=== PATIENT | male | born 1945 | race Caucasian/White ===

== ENCOUNTER 2019-07-11 12:57 | Inpatient (IN) | payer MEDICARE, BC ==
[~2019-07-11] VITALS: Ht 190.5 cm; Wt 68.0 kg
[2019-07-11] MEDS ORDERED: CefTRIAXone 2gm/D5W 50ml 50 ML IV ONE (13:05)
[2019-07-11] MEDS ORDERED: ipratropium/albuterol 3ml nebule NEB ONE (13:05)
[2019-07-11] MEDS ORDERED: azithromycin/NS 500mg/250ml 250 ML IV ONE (13:05)
[2019-07-11] MEDS ORDERED: normal saline 1000ml 1,000 ML IV ONE (13:05)
--- NOTE | 2019-07-11 13:37 | NUR ---
MEDICAL RECORD RELEASE FAXED TO [facility]
[2019-07-11 13:54] LABS: BASOPHILS # (AUTO) 0.1 X10'3 (0-0.2); BASOPHILS % (AUTO) 0.6 % (0-1); EOSINOPHILS % (AUTO) 0.3 % (0-6); HEMATOCRIT 43.1 % (42.0-52.0); HEMOGLOBIN 14.6 g/dl (14.0-17.9); LYMPHOCYTES # (AUTO) 0.5 X10'3 (1.1-4.8); LYMPHOCYTES % (AUTO) 5.1 % (21-51); MEAN CORPUSCULAR HEMOGLOBIN 34.5 PG (27.0-31.0); MEAN CORPUSCULAR HGB CONC 33.8 g/dL (33.0-36.5); MEAN PLATELET VOLUME 7.6 FL (7.4-10.4); MONOCYTES # (AUTO) 0.5 X10'3 (0-0.9); MONOCYTES % (AUTO) 5.7 % (2-12); NEUTROPHILS % (AUTO) 88.3 % (42-75); PLATELET COUNT 201 X10'3 (140-440); RED BLOOD COUNT 4.23 X10'6 (4.70-6.10); RED CELL DISTRIBUTION WIDTH 14.6 % (11.5-14.5); WHITE BLOOD COUNT 9.1 X10'3 (4.5-11.0)
[2019-07-11 14:05] LABS: PARTIAL THROMBOPLASTIN TIME 28 SECONDS (22-32)
[2019-07-11 14:07] LABS: ALANINE AMINOTRANSFERASE 10 U/L (12-78); ALBUMIN 3.5 G/DL (3.4-5.0); ALBUMIN/GLOBULIN RATIO 1.1 (1.1-1.5); ALKALINE PHOSPHATASE 59 IU/L (46-116); ANION GAP 5 (8-16); ASPARTATE AMINO TRANSFERASE 11 U/L (10-37); BILIRUBIN,TOTAL 0.7 MG/DL (0.1-1.0); BLOOD UREA NITROGEN 18 MG/DL (7-18); BUN/CREATININE RATIO 12.8 (5.4-32.0); CHLORIDE 106 MMOL/L (99-107); CREATININE 1.41 MG/DL (0.60-1.10); GLUCOSE 120 MG/DL (70-104); MAGNESIUM 1.7 MG/DL (1.5-2.4); POTASSIUM 4.8 MMOL/L (3.5-5.1); SODIUM 140 MMOL/L (135-145); TOTAL CARBON DIOXIDE 28.8 MMOL/L (24-32); TOTAL PROTEIN 6.8 G/DL (6.4-8.2); eGFR 49 ML/MIN
[2019-07-11] MEDS ORDERED: ALBU8HFA PO (14:14)
[2019-07-11] MEDS ORDERED: PER10325T PO (14:14)
[2019-07-11] MEDS ORDERED: CHOL200012 PO (14:14)
[2019-07-11] MEDS ORDERED: SIMV20TA5 PO (14:14)
[2019-07-11] MEDS ORDERED: FURO-150 PO (14:14)
[2019-07-11] MEDS ORDERED: ATEN-169 PO (14:14)
[2019-07-11] MEDS ORDERED: NITR0.4T51 SL (14:14)
[2019-07-11] MEDS ORDERED: ACET-2119 PO (14:14)
[2019-07-11] MEDS ORDERED: NALO4SPR NAS (14:14)
[2019-07-11] MEDS ORDERED: SENN-162 PO (14:14)
[2019-07-11] MEDS ORDERED: METH750T3 PO (14:14)
[2019-07-11] MEDS ORDERED: CLOP75TA35 PO (14:14)
[2019-07-11] MEDS ORDERED: PROM25TA14 PO (14:14)
[2019-07-11] MEDS ORDERED: ASPI-1264 PO (14:14)
[2019-07-11] MEDS ORDERED: BUPR100T16 PO (14:14)
[2019-07-11] MEDS ORDERED: MORP30TA PO (14:14)
[2019-07-11] MEDS ORDERED: GABA-532 PO (14:14)
[2019-07-11] MEDS ORDERED: ATRIN IH (14:14)
[2019-07-11] MEDS ORDERED: FOLI0.4T2 PO (14:14)
[2019-07-11] MEDS ORDERED: iohexol 350MG/ML 100ml bottle IV ONE (14:25)
[2019-07-11] MEDS ORDERED: normal saline 1000ML IV soln IVB ONE (14:35)
[2019-07-11] MEDS ORDERED: naloxone 0.4 mg/ml inj IV PRN (16:45)
[2019-07-11] MEDS ORDERED: nitroGLYCERIN 0.4mg SUBLingual tab SL PRN (16:45)
--- NOTE | 2019-07-11 16:49 | NUR ---
CONTACT YUE @ [phone] WITH [facility] PRIOR TO DISCHARGE TO UPDATE THEM RE: PT.
[2019-07-11 16:50] LABS: ABG HCO3 22.7 mmol/L (22.0-26.0); ABG OXYGEN SATURATION 93.8 % (95-98); ABG PCO2 (T) 34.7 mmHg (35.0-45.0); ABG PH (T) 7.434 (7.350-7.450); ABG PO2 (T) 65.7 mmHg (83-108); ALLEN'S TEST Positive; FCOHb 0.9 % (0.5-1.5); FMetHb 0.3 % (0.3-1.12); FO2Hb 92.7 % (94-100); TOTAL HEMOGLOBIN 13.3 G/dl (14.0-17.9)
[2019-07-11] MEDS ORDERED: potassium Cl 20 mEq SR tablet PO PRN ×2 (16:50)
[2019-07-11] MEDS ORDERED: morphine 2 MG/ML inj. syringe IV PRN (16:50)
[2019-07-11] MEDS: K and/or MAG REPLACEMENT MC SCH (16:50)
[2019-07-11] MEDS ORDERED: magnesium hydroxide 30ml (MOM) UD suspension PO PRN (16:50)
[2019-07-11] MEDS ORDERED: methylPREDNISolone sod succ 125mg/2ml vial IV ONE (16:50)
[2019-07-11] MEDS ORDERED: HYDROcodone/acetaminophen 5mg/325mg tablet PO PRN (16:50)
[2019-07-11] MEDS ORDERED: acetaminophen 325mg tablet PO PRN ×2 (16:50)
[2019-07-11] MEDS ORDERED: diphenhydrAMINE 25mg capsule PO PRN (16:50)
[2019-07-11] MEDS ORDERED: magnesium 2GM in 50ml NS 50 ML IV PRN (16:50)
[2019-07-11] MEDS ORDERED: mag hydrox/Alum hydrox/simeth 30ml oral suspension PO PRN (16:50)
[2019-07-11] MEDS ORDERED: potassium CL 10mEq/100ml bag 100 ML IV PRN ×2 (16:50)
[2019-07-11] MEDS ORDERED: diphenhydrAMINE 50 mg/ml inj IV PRN (16:50)
[2019-07-11] MEDS ORDERED: magnesium 4gm in 100ml NS 100 ML IV PRN (16:50)
[2019-07-11] MEDS ORDERED: HYDROcodone/acetaminophen 10/325mg tab PO PRN (16:50)
[2019-07-11] MEDS ORDERED: bisacodyl 10mg suppository rectal RC PRN (16:50)
[2019-07-11] MEDS ORDERED: ondansetron/PF 4mg/2ml inj IV PRN (16:50)
[2019-07-11] MEDS ORDERED: magnesium Cl slow-release 64mg tablet PO PRN (16:50)
[2019-07-11] MEDS: normal saline 1000ml 1,000 ML IV SCH ×2 (17:46→21:25)
[2019-07-11] MEDS ORDERED: MSC30T PO (18:08)
[2019-07-11] MEDS ORDERED: NALO25TA PO (18:10)
[2019-07-11] MEDS ORDERED: LISI10TA4 PO (18:10)
[2019-07-11] MEDS ORDERED: OMEP40CA13 PO (18:10)
[2019-07-11 18:20] LABS: CLARITY,URINE CLEAR (Clear); COLOR,URINE YELLOW (Yellow); GLUCOSE, URINE NEGATIVE (Neg); KETONES,URINE NEGATIVE (Neg); LEUKOCYTE ESTERASE ,URINE NEGATIVE (Neg); NITRITES, URINE NEGATIVE (Neg); OCCULT BLOOD,URINE NEGATIVE (Neg); PH,URINE 5.5 (4.8-8.0); PROTEIN,URINE NEGATIVE (Neg); UROBILINOGEN,URINE 0.2 E.U/dL (0.2-1.0)
[2019-07-11 18:22] LABS: UA COLLECTION TYPE CLN CATCH MIDSTREAM
[2019-07-11] MEDS: ipratropium/albuterol 3ml nebule NEB SCH ×2 (19:03→23:00)
[2019-07-11 19:46] VITALS: BP 127/68
[2019-07-11] MEDS ORDERED: morphine IR (immed. release) 30mg tablet PO SCH (20:00)
[2019-07-11] MEDS ORDERED: cyclobenzaprine 10mg tablet PO PRN (21:00)
[2019-07-11] MEDS ORDERED: temazepam 15mg capsule PO PRN (21:00)
[2019-07-11] MEDS: heparin, porcine 5000 units/ml vial SQ SCH (21:22)
[2019-07-11] MEDS: sennosides 8.6mg tablet PO SCH (21:23)
[2019-07-11] MEDS: gabapentin 300mg capsule PO SCH (21:23)
[2019-07-11] MEDS: atorvastatin 20mg tablet PO SCH (21:24)
[2019-07-11] MEDS: oxyCODONE/APAP 10/325mg tablet PO SCH (21:25)
[2019-07-11 22:00] VITALS: BP 128/69
[2019-07-11] MEDS: buPROPion 100mg tablet PO SCH (23:26)
--- NOTE | 2019-07-11 23:35 | NUR ---
Patient refused Wellbutrin / BuPROPion 100mg after I scanned med. Dr. Mir was informed.
[2019-07-11] MEDS: methylPREDNISolone sod succ 125mg/2ml vial IV SCH (23:56)
[2019-07-12 02:00] VITALS: BP 116/67
[2019-07-12] MEDS: ipratropium/albuterol 3ml nebule NEB SCH ×6 (02:54→23:00)
[2019-07-12 05:34] LABS: ALANINE AMINOTRANSFERASE 7 U/L (12-78); ALBUMIN 2.9 G/DL (3.4-5.0); ALBUMIN/GLOBULIN RATIO 0.9 (1.1-1.5); ALKALINE PHOSPHATASE 50 IU/L (46-116); ANION GAP 9 (8-16); ASPARTATE AMINO TRANSFERASE 5 U/L (10-37); BILIRUBIN,TOTAL 0.4 MG/DL (0.1-1.0); BLOOD UREA NITROGEN 18 MG/DL (7-18); BUN/CREATININE RATIO 15.1 (5.4-32.0); CALCIUM 8.7 MG/DL (8.5-10.1); CHLORIDE 107 MMOL/L (99-107); CHOL/HDL RATIO 2.1 (0.00-4.99); CHOLESTEROL 147 MG/DL (0-200); CREATININE 1.19 MG/DL (0.60-1.10); GLUCOSE 163 MG/DL (70-104); HDL CHOLESTEROL 69 MG/DL (35-60); LDL CHOLESTEROL 67 MG/DL (50-100); MAGNESIUM 1.8 MG/DL (1.5-2.4); PHOSPHORUS 2.4 MG/DL (2.3-4.5); POTASSIUM 4.5 MMOL/L (3.5-5.1); SODIUM 141 MMOL/L (135-145); TOTAL CARBON DIOXIDE 25.3 MMOL/L (24-32); TOTAL PROTEIN 6.1 G/DL (6.4-8.2); TRIGLYCERIDES 36 MG/DL (20-135); eGFR 59 ML/MIN
[2019-07-12 06:00] VITALS: BP 120/64
[2019-07-12 06:05] LABS: BASOPHILS % (AUTO) 0 % (0-1); EOSINOPHILS % (AUTO) 0 % (0-6); HEMATOCRIT 39.8 % (42.0-52.0); HEMOGLOBIN 13.3 g/dl (14.0-17.9); LYMPHOCYTES # (AUTO) 0.5 X10'3 (1.1-4.8); LYMPHOCYTES % (AUTO) 6.1 % (21-51); MEAN CORPUSCULAR HEMOGLOBIN 34.2 PG (27.0-31.0); MEAN CORPUSCULAR HGB CONC 33.5 g/dL (33.0-36.5); MEAN CORPUSCULAR VOLUME 102.2 FL (78-98); MEAN PLATELET VOLUME 7.8 FL (7.4-10.4); MONOCYTES # (AUTO) 0.1 X10'3 (0-0.9); MONOCYTES % (AUTO) 0.9 % (2-12); NEUTROPHILS # (AUTO) 6.9 X10'3 (1.8-7.7); PLATELET COUNT 176 X10'3 (140-440); RED CELL DISTRIBUTION WIDTH 14.7 % (11.5-14.5); WHITE BLOOD COUNT 7.4 X10'3 (4.5-11.0)
--- NOTE | 2019-07-12 06:35 | NUR ---
Problems reprioritized. Patient report given, questions answered & plan of care reviewed with MOUNA Scott. Pt in stable condition at shift change..
[2019-07-12] MEDS: normal saline 1000ml 1,000 ML IV SCH ×2 (07:00→20:30)
[2019-07-12] MEDS: K and/or MAG REPLACEMENT MC SCH (08:00)
[2019-07-12] MEDS: oxyCODONE/APAP 10/325mg tablet PO SCH ×3 (08:00→20:33)
[2019-07-12] MEDS: buPROPion 100mg tablet PO SCH ×2 (08:24→20:00)
[2019-07-12] MEDS: azithromycin 250mg tablet PO SCH (08:24)
[2019-07-12] MEDS: pantoprazole 40mg Tablet.DR PO SCH (08:25)
[2019-07-12] MEDS: lisinopril 10 MG tablet PO SCH (08:25)
[2019-07-12] MEDS: folic acid 0.4mg tablet PO SCH (08:26)
[2019-07-12] MEDS: vitamin D (cholecalciferol) 1,000 unit tablet PO SCH (08:27)
[2019-07-12] MEDS: clopidogrel 75mg tablet PO SCH (08:27)
[2019-07-12] MEDS: furosemide 20MG tablet PO SCH (08:27)
[2019-07-12] MEDS: aspirin 325mg tablet PO SCH (08:27)
[2019-07-12] MEDS: methylPREDNISolone sod succ 125mg/2ml vial IV SCH ×3 (08:28→23:46)
[2019-07-12] MEDS: heparin, porcine 5000 units/ml vial SQ SCH ×2 (08:28→20:32)
[2019-07-12] MEDS: gabapentin 300mg capsule PO SCH ×3 (08:28→20:32)
[2019-07-12] MEDS: atenolol 25mg tablet PO SCH (08:31)
[2019-07-12] MEDS: morphine 2 MG/ML inj. syringe IV PRN ×2 (08:39→23:54)
[2019-07-12] MEDS: morphine ER 30mg tablet PO SCH ×2 (08:39→20:31)
[2019-07-12] MEDS: CefTRIAXone/D5W-Rocephin 1gm 50 ML IV SCH (08:40)
[2019-07-12 11:00] VITALS: BP 146/73
--- NOTE | 2019-07-12 14:38 | NUR ---
Patient only ate a few bites of rice and meat. Addendum: 07/12/19 at 1438 by Viktoria Donato RN Amended: Links added.
--- NOTE | 2019-07-12 14:55 | NUR ---
Malnutrition consult: Patient seen at bedside reports low appetite secondary to pain which is evident with documented 50% PO intake at breakfast and 0% PO intake at lunch on heart healthy diet. Pt reports poor PO intake for lunch r/t CP following RT treatment. Pt reports he weighed 215-220 lbs seven years ago prior to pain, current documented wt is patient stated at 180 lbs which pt reports was taken recently at a different facility. This is non-significant wt loss of 16-18% in seven years. Pt with mild weakness and no edema. No visible fat or muscle wasting. Pt currently does not meet criteria for malnutrition. Pt denies any food preferences at this time and was provided with written heart healthy alternative food menu to provide additional food options and RD contact information. Will continue to follow. Addendum: 07/12/19 at [address] Amended: Links added.
[2019-07-12 15:00] VITALS: BP 110/61
[2019-07-12 18:00] VITALS: BP 104/58
--- NOTE | 2019-07-12 18:05 | NUR ---
Problems reprioritized. Patient report given, questions answered & plan of care reviewed with MOUNA Moeller.
--- NOTE | 2019-07-12 18:05 | NUR ---
Patient in room PCU 3024Y. I have received report from MOUNA Blum and had the opportunity to ask questions and assume patient care. Pt is A&O X4, denies CP, nausea, or dizziness.
[2019-07-12] MEDS: sennosides 8.6mg tablet PO SCH (20:32)
[2019-07-12] MEDS: atorvastatin 20mg tablet PO SCH (20:32)
[2019-07-12 22:00] VITALS: BP 115/62
[2019-07-13 02:00] VITALS: BP 126/69
[2019-07-13] MEDS: ipratropium/albuterol 3ml nebule NEB SCH ×4 (03:14→15:30)
[2019-07-13 06:00] VITALS: BP 162/83
[2019-07-13 06:31] LABS: BASOPHILS # (AUTO) 0.1 X10'3 (0-0.2); BASOPHILS % (AUTO) 0.4 % (0-1); EOSINOPHILS % (AUTO) 0 % (0-6); HEMATOCRIT 43.3 % (42.0-52.0); HEMOGLOBIN 14.3 g/dl (14.0-17.9); LYMPHOCYTES # (AUTO) 0.8 X10'3 (1.1-4.8); LYMPHOCYTES % (AUTO) 5.6 % (21-51); MEAN CORPUSCULAR HEMOGLOBIN 33.5 PG (27.0-31.0); MEAN CORPUSCULAR HGB CONC 33.1 g/dL (33.0-36.5); MEAN CORPUSCULAR VOLUME 101.3 FL (78-98); MEAN PLATELET VOLUME 7.8 FL (7.4-10.4); MONOCYTES # (AUTO) 0.4 X10'3 (0-0.9); MONOCYTES % (AUTO) 2.6 % (2-12); NEUTROPHILS # (AUTO) 13.2 X10'3 (1.8-7.7); NEUTROPHILS % (AUTO) 91.4 % (42-75); PLATELET COUNT 201 X10'3 (140-440); RED BLOOD COUNT 4.27 X10'6 (4.70-6.10); RED CELL DISTRIBUTION WIDTH 14.5 % (11.5-14.5); WHITE BLOOD COUNT 14.4 X10'3 (4.5-11.0)
[2019-07-13 06:51] LABS: ALBUMIN 3.1 G/DL (3.4-5.0); ALBUMIN/GLOBULIN RATIO 0.9 (1.1-1.5); ALKALINE PHOSPHATASE 57 IU/L (46-116); ANION GAP 10 (8-16); ASPARTATE AMINO TRANSFERASE 8 U/L (10-37); BILIRUBIN,TOTAL 0.3 MG/DL (0.1-1.0); BLOOD UREA NITROGEN 21 MG/DL (7-18); BUN/CREATININE RATIO 15.6 (5.4-32.0); CHLORIDE 105 MMOL/L (99-107); CREATININE 1.35 MG/DL (0.60-1.10); GLUCOSE 130 MG/DL (70-104); MAGNESIUM 1.9 MG/DL (1.5-2.4); PHOSPHORUS 3.8 MG/DL (2.3-4.5); POTASSIUM 4.4 MMOL/L (3.5-5.1); SODIUM 141 MMOL/L (135-145); TOTAL CARBON DIOXIDE 25.8 MMOL/L (24-32); TOTAL PROTEIN 6.7 G/DL (6.4-8.2); eGFR 51 ML/MIN
--- NOTE | 2019-07-13 06:52 | NUR ---
Patient in room PCU 3024. I have received report from Rakesh FREIRE, and had the opportunity to ask questions and assume patient care.
[2019-07-13 07:00] VITALS: BP 106/76
--- NOTE | 2019-07-13 07:01 | NUR ---
Took patient's blood pressure at 07:00. Pt 's BP is 106/76 Addendum: 07/13/19 at 0702 by Rakesh Washburn RN Amended: Links added.
--- NOTE | 2019-07-13 07:01 | NUR ---
Problems reprioritized. Patient report given, questions answered & plan of care reviewed with Elisa RN . Pt is awake, A&O X4, denies nausea. Pt pulled IV by accident and he will need a new IV.
[2019-07-13 07:06] LABS: ALANINE AMINOTRANSFERASE 10 U/L (12-78)
[2019-07-13] MEDS: K and/or MAG REPLACEMENT MC SCH (08:00)
[2019-07-13] MEDS: oxyCODONE/APAP 10/325mg tablet PO SCH ×2 (09:10→17:01)
[2019-07-13] MEDS: azithromycin 250mg tablet PO SCH (09:12)
[2019-07-13] MEDS: aspirin 325mg tablet PO SCH (09:12)
[2019-07-13] MEDS: atenolol 25mg tablet PO SCH (09:12)
[2019-07-13] MEDS: buPROPion 100mg tablet PO SCH (09:12)
[2019-07-13] MEDS: vitamin D (cholecalciferol) 1,000 unit tablet PO SCH (09:12)
[2019-07-13 09:13] VITALS: BP_SYST 162
[2019-07-13] MEDS: furosemide 20MG tablet PO SCH (09:13)
[2019-07-13] MEDS: methylPREDNISolone sod succ 125mg/2ml vial IV SCH ×2 (09:13→17:02)
[2019-07-13] MEDS: clopidogrel 75mg tablet PO SCH (09:13)
[2019-07-13] MEDS: lisinopril 10 MG tablet PO SCH (09:13)
[2019-07-13] MEDS: gabapentin 300mg capsule PO SCH ×2 (09:14→17:01)
[2019-07-13] MEDS: morphine ER 30mg tablet PO SCH (09:14)
[2019-07-13] MEDS: CefTRIAXone/D5W-Rocephin 1gm 50 ML IV SCH (09:15)
[2019-07-13] MEDS: heparin, porcine 5000 units/ml vial SQ SCH (09:39)
[2019-07-13] MEDS: folic acid 0.4mg tablet PO SCH (09:40)
[2019-07-13] MEDS: pantoprazole 40mg Tablet.DR PO SCH (09:40)
--- NOTE | 2019-07-13 10:26 | NUR ---
HOME MED: Movantik ( Naloxegol Oxalate 25mg ) is unavailable. Pt. says no BM since 5 days prior to admission. He admits to having an every other day BM schedule. notified with request for substitute for Movantik.
--- NOTE | 2019-07-13 10:42 | NUR ---
Constipation needs: Page to Ronal[facility] ESPINOZA PAGER ID: [phone] MESSAGE: Kilo Goodman [id number] No Movantik Home Medication available Chronic Opiate user, Last BM 07-06-19 Please consider ordering a substitute/on formulary medication. Like Relistor. Thank You Elisa FREIRE [phone] The reasoning for no access to the home medication is Pt. lives alone.
--- NOTE | 2019-07-13 12:00 | NUR ---
Ambulates with cane: gait has sway otherwise steady using Assistive device (cane). No SOB noted. No Chest Pain with exertion.
[2019-07-13] MEDS ORDERED: PRED20TA PO (13:52)
[2019-07-13] MEDS ORDERED: CEFU500T66 PO (13:52)
[2019-07-13] MEDS: normal saline 1000ml 1,000 ML IV SCH (17:02)
--- NOTE | 2019-07-13 18:00 | NUR ---
Discharged Home Family friend will drive him home and stop by [facility] to picker feeder new medications. Dosing of new medication is explained to both friend and Pt. Written instructions are provided and Prednisone scott is reinforced. Daughter is aware of discharge and has spoken to nursing regarding discharge home today. Ambulate steadily with assistive device cane. Wheel chair to front entrance. Instructions are well understood at this time. Pt. will contact his home health team, and daughter will schedule a follow up appointment for a recheck within the next two weeks. All belongings are presently with the Pt. and he has his wallet. His johnson and cell phone were retained by the family friend on admission and He said that he has these things at home. Documentation is provided for his provider.
== END 2019-07-13 18:05 | disposition home or self-care (01) | DRG 193 ==
LOC: ER 13:00 → PCU 3S 19:31
PROVIDERS: ADMIT Family Medicine; ATTEND Family Medicine
PROC: B32T1ZZ Computerized Tomography (CT Scan) of Left Pulmonary Artery using Low Osmolar Contrast (ICD-10-PCS; principal; 2019-07-11)
PROC: B3201ZZ Computerized Tomography (CT Scan) of Thoracic Aorta using Low Osmolar Contrast (ICD-10-PCS; 2019-07-11)
PROC: B32S1ZZ Computerized Tomography (CT Scan) of Right Pulmonary Artery using Low Osmolar Contrast (ICD-10-PCS; 2019-07-11)
DX: J18.1 Lobar pneumonia, unspecified organism (principal); G93.41 Metabolic encephalopathy; J96.91 Respiratory failure, unspecified with hypoxia; K21.9 Gastro-esophageal reflux disease without esophagitis; J43.9 Emphysema, unspecified; E78.00 Pure hypercholesterolemia, unspecified; E78.5 Hyperlipidemia, unspecified; D72.823 Leukemoid reaction; E86.0 Dehydration; F03.90 Unspecified dementia, unspecified severity, without behavioral disturbance, psychotic disturbance, mood disturbance, and anxiety; F10.21 Alcohol dependence, in remission; T38.0X5A Adverse effect of glucocorticoids and synthetic analogues, initial encounter; F32.9 Major depressive disorder, single episode, unspecified; G62.9 Polyneuropathy, unspecified; G89.4 Chronic pain syndrome; I10 Essential (primary) hypertension; I25.10 Atherosclerotic heart disease of native coronary artery without angina pectoris; I73.9 Peripheral vascular disease, unspecified; K59.00 Constipation, unspecified; Z79.899 Other long term (current) drug therapy; Z79.02 Long term (current) use of antithrombotics/antiplatelets; Z79.82 Long term (current) use of aspirin; Z80.1 Family history of malignant neoplasm of trachea, bronchus and lung; Z87.891 Personal history of nicotine dependence; Z83.79 Family history of other diseases of the digestive system; Z81.1 Family history of alcohol abuse and dependence; Y92.89 Other specified places as the place of occurrence of the external cause
CPT/HCPCS: 36415; 36600; 71045; 71275; 80053; 80061; 81003; 82803; 83036; 83605; 83735; 84100; 84484; 85018; 85025; 85610; 85730; 87040; 93005; 93306; 94640; 94760; 96365; 96368; 96375; 97161; 97530; 99285; G0378; J0456; J0696; J1644; J2270; J2405; J2930; J7030; Q9967

== ENCOUNTER 2019-08-07 15:11 | Inpatient (IN) | payer MEDICARE, BC ==
[~2019-08-07] VITALS: Ht 182.9 cm; Wt 79.6 kg
[~2019-08-07 15:11] MED LIST: ACET-2119 PO; ALBU8HFA PO; ASPI-1264 PO; ATEN-169 PO; ATRIN IH; BUPR100T16 PO; CEFU500T66 PO; CHOL200012 PO; CLOP75TA35 PO; FOLI0.4T2 PO; FURO-150 PO; GABA-532 PO; LISI10TA4 PO; METH750T3 PO; MSC30T PO; NALO25TA PO; NALO4SPR NAS; NITR0.4T51 SL; OMEP40CA13 PO; PER10325T PO; PRED20TA PO; PROM25TA14 PO; SENN-162 PO; SIMV-42 PO
[2019-08-07] MEDS ORDERED: normal saline 1000ML IV soln IVB ONE (15:50)
[2019-08-07] MEDS ORDERED: ondansetron/PF 4mg/2ml inj IV ONE (15:50)
[2019-08-07 16:37] LABS: BASOPHILS % (AUTO) 0.6 % (0-1); EOSINOPHILS % (AUTO) 0 % (0-6); HEMATOCRIT 44.9 % (42.0-52.0); HEMOGLOBIN 15.1 g/dl (14.0-17.9); LYMPHOCYTES # (AUTO) 1.2 X10'3 (1.1-4.8); LYMPHOCYTES % (AUTO) 15.3 % (21-51); MEAN CORPUSCULAR HEMOGLOBIN 33.2 PG (27.0-31.0); MEAN CORPUSCULAR HGB CONC 33.5 g/dL (33.0-36.5); MEAN CORPUSCULAR VOLUME 99.2 FL (78-98); MEAN PLATELET VOLUME 7.5 FL (7.4-10.4); MONOCYTES # (AUTO) 0.5 X10'3 (0-0.9); MONOCYTES % (AUTO) 6.8 % (2-12); NEUTROPHILS # (AUTO) 5.9 X10'3 (1.8-7.7); NEUTROPHILS % (AUTO) 77.3 % (42-75); PLATELET COUNT 328 X10'3 (140-440); RED BLOOD COUNT 4.53 X10'6 (4.70-6.10); RED CELL DISTRIBUTION WIDTH 14.7 % (11.5-14.5); WHITE BLOOD COUNT 7.6 X10'3 (4.5-11.0)
[2019-08-07 16:43] LABS: PARTIAL THROMBOPLASTIN TIME 23 SECONDS (22-32)
--- NOTE | 2019-08-07 16:44 | NUR ---
Patient back from CT
[2019-08-07 16:48] LABS: ALANINE AMINOTRANSFERASE 25 U/L (12-78); ALBUMIN 3.6 G/DL (3.4-5.0); ALBUMIN/GLOBULIN RATIO 0.9 (1.1-1.5); ALKALINE PHOSPHATASE 75 IU/L (46-116); ANION GAP 15 (8-16); ASPARTATE AMINO TRANSFERASE 20 U/L (10-37); BILIRUBIN,TOTAL 0.5 MG/DL (0.1-1.0); BLOOD UREA NITROGEN 29 MG/DL (7-18); BUN/CREATININE RATIO 18.1 (5.4-32.0); CHLORIDE 105 MMOL/L (99-107); GLUCOSE 124 MG/DL (70-104); POTASSIUM 4.2 MMOL/L (3.5-5.1); SODIUM 144 MMOL/L (135-145); TOTAL CARBON DIOXIDE 24.3 MMOL/L (24-32); TOTAL PROTEIN 7.6 G/DL (6.4-8.2); eGFR 42 ML/MIN
[2019-08-07 16:50] LABS: ETHANOL < 0.010 GM/DL (0.0-0.010); LACTIC SEPSIS 1.4 MMOL/L (0.4-2.0); TROPONIN I < 0.04 NG/ML (0.0-0.05)
[2019-08-07 16:52] LABS: AMMONIA < 10 UMOL/L (11-32)
[2019-08-07 17:02] LABS: LIPASE 112 U/L (73-393)
[2019-08-07 17:34] LABS: GLUCOSE, URINE NEGATIVE (Neg); KETONES,URINE 40 mg/dl (Neg); LEUKOCYTE ESTERASE ,URINE TRACE (Neg); NITRITES, URINE NEGATIVE (Neg); OCCULT BLOOD,URINE NEGATIVE (Neg); PH,URINE 7.5 (4.8-8.0); PROTEIN,URINE 30 mg/dl (Neg)
[2019-08-07 17:37] LABS: UA COLLECTION TYPE STRAIGHT CATH
[2019-08-07 17:38] LABS: CLARITY,URINE SLIGHTLY CLOUDY (Clear); COLOR,URINE DARK YELLOW (Yellow); URINE AMPHETAMINE SCREEN NEGATIVE (Neg); URINE BARBITUATE SCREEN NEGATIVE (Neg); URINE BENZODIAZEPINES SCREEN NEGATIVE (Neg); URINE CANNABINOID SCREEN NEGATIVE (Neg); URINE COCAINE SCREEN NEGATIVE (Neg); URINE METHADONE SCREEN NEGATIVE (Neg); URINE OPIATE SCREEN POSITIVE (Neg); URINE PHENCYCLIDINE SCREEN NEGATIVE (Neg)
[2019-08-07 17:46] LABS: BACTERIA,URINE FEW /HPF (Neg); MUCUS STRANDS MANY /LPF (Neg); RBC,URINE 0-2 /HPF (0-2); SQUAMOUS EPITHELIAL CELL,UR MANY /LPF (FEW); TRANSITIONAL EPI CELLS,URINE FEW /HPF
[2019-08-07] MEDS ORDERED: magnesium 2GM in 50ml NS 50 ML IV PRN (17:55)
[2019-08-07] MEDS ORDERED: metoclopramide 5 mg/ml inj IV PRN (17:55)
[2019-08-07] MEDS ORDERED: potassium Cl 20 mEq SR tablet PO PRN ×2 (17:55)
[2019-08-07] MEDS ORDERED: potassium CL 10mEq/100ml bag 100 ML IV PRN (17:55)
[2019-08-07] MEDS ORDERED: acetaminophen 325mg tablet PO PRN (17:55)
[2019-08-07] MEDS ORDERED: magnesium hydroxide 30ml (MOM) UD suspension PO PRN (17:55)
[2019-08-07] MEDS ORDERED: mag hydrox/Alum hydrox/simeth 30ml oral suspension PO PRN (17:55)
[2019-08-07] MEDS ORDERED: magnesium 4gm in 100ml NS 100 ML IV PRN (17:55)
[2019-08-07] MEDS ORDERED: magnesium Cl slow-release 64mg tablet PO PRN (17:55)
[2019-08-07] MEDS: CefTRIAXone/D5W-Rocephin 1gm 50 ML IV SCH ×2 (18:27→22:09)
[2019-08-07] MEDS: normal saline 1000ml 1,000 ML IV SCH ×3 (18:28→22:09)
[2019-08-07 18:51] LABS: MAGNESIUM 1.9 MG/DL (1.5-2.4); PHOSPHORUS 2.1 MG/DL (2.3-4.5)
[2019-08-07 20:00] VITALS: BP_SYST 168; BP_SYST 179; BP_DIAS 88; BP_DIAS 90
[2019-08-07 21:00] VITALS: BP 160/88
[2019-08-07] MEDS ORDERED: temazepam 15mg capsule PO PRN (21:00)
--- NOTE | 2019-08-07 21:00 | NUR ---
Bryant ESPINOZA made aware of pt blood pressure and pain level. Due to pt ALOC, pt pain will be reassessed in AM per .
[2019-08-07] MEDS: acetaminophen 325mg tablet PO PRN (21:44)
[2019-08-08] VITALS: BP 159/92
[2019-08-08] MEDS: ondansetron/PF 4mg/2ml inj IV PRN (01:56)
--- NOTE | 2019-08-08 02:19 | NUR ---
called Bryant ESPINOZA and notified that pt has not yet urinated since coming to the floor and that a bladder scan only showed 50 mL in his bladder. No new orders. Will continue to monitor.
[2019-08-08 03:01] LABS: BASOPHILS # (AUTO) 0.1 X10'3 (0-0.2); EOSINOPHILS % (AUTO) 0.1 % (0-6); MONOCYTES # (AUTO) 0.6 X10'3 (0-0.9); NEUTROPHILS # (AUTO) 5.4 X10'3 (1.8-7.7); RED BLOOD COUNT 4.34 X10'6 (4.70-6.10)
[2019-08-08 03:02] LABS: BASOPHILS % (AUTO) 0.8 % (0-1); HEMATOCRIT 42.9 % (42.0-52.0); HEMOGLOBIN 14.6 g/dl (14.0-17.9); LYMPHOCYTES # (AUTO) 1.4 X10'3 (1.1-4.8); LYMPHOCYTES % (AUTO) 18.9 % (21-51); MEAN CORPUSCULAR HEMOGLOBIN 33.7 PG (27.0-31.0); MEAN CORPUSCULAR HGB CONC 34.1 g/dL (33.0-36.5); MEAN CORPUSCULAR VOLUME 98.9 FL (78-98); MEAN PLATELET VOLUME 7.6 FL (7.4-10.4); MONOCYTES % (AUTO) 8.4 % (2-12); NEUTROPHILS % (AUTO) 71.8 % (42-75); PLATELET COUNT 299 X10'3 (140-440); RED CELL DISTRIBUTION WIDTH 14.4 % (11.5-14.5); WHITE BLOOD COUNT 7.5 X10'3 (4.5-11.0)
[2019-08-08 03:11] LABS: ALANINE AMINOTRANSFERASE 27 U/L (12-78); ALBUMIN 3.3 G/DL (3.4-5.0); ALBUMIN/GLOBULIN RATIO 0.9 (1.1-1.5); ALKALINE PHOSPHATASE 69 IU/L (46-116); ANION GAP 12 (8-16); ASPARTATE AMINO TRANSFERASE 26 U/L (10-37); BILIRUBIN,TOTAL 0.4 MG/DL (0.1-1.0); BLOOD UREA NITROGEN 33 MG/DL (7-18); BUN/CREATININE RATIO 22.1 (5.4-32.0); CALCIUM 9.2 MG/DL (8.5-10.1); CHLORIDE 109 MMOL/L (99-107); CREATININE 1.49 MG/DL (0.60-1.10); GLUCOSE 100 MG/DL (70-104); PHOSPHORUS 3.6 MG/DL (2.3-4.5); POTASSIUM 4.1 MMOL/L (3.5-5.1); SODIUM 144 MMOL/L (135-145); TOTAL CARBON DIOXIDE 23.2 MMOL/L (24-32); TOTAL PROTEIN 6.9 G/DL (6.4-8.2); eGFR 46 ML/MIN
[2019-08-08] MEDS: normal saline 1000ml 1,000 ML IV SCH ×2 (04:49→16:15)
--- NOTE | 2019-08-08 06:14 | NUR ---
Problems reprioritized. Patient report given, questions answered & plan of care reviewed with
--- NOTE | 2019-08-08 06:52 | NUR ---
Patient in room REMA 349. I have received report from NEO FREIRE and had the opportunity to ask questions and assume patient care.
[2019-08-08 07:00] VITALS: BP_SYST 167; BP_SYST 187; BP_DIAS 96
--- NOTE | 2019-08-08 07:21 | NUR ---
Patient in room REMA 349. I have received report from Gilmar FREIRE and had the opportunity to ask questions and assume patient care.
[2019-08-08 08:00] VITALS: BP 187/96
[2019-08-08] MEDS ORDERED: enoxaparin 40mg/0.4ml syringe SUBCUT SCH (08:00)
[2019-08-08] MEDS: K and/or MAG REPLACEMENT MC SCH (08:00)
[2019-08-08] MEDS: CefTRIAXone/D5W-Rocephin 1gm 50 ML IV SCH (08:15)
[2019-08-08] MEDS: acetaminophen 325mg tablet PO PRN (08:24)
[2019-08-08] MEDS ORDERED: SIMV40TA PO ×2 (08:58→23:20)
[2019-08-08] MEDS ORDERED: TIOT18CA3 INH ×2 (09:26→23:20)
[2019-08-08 11:00] VITALS: BP 174/86
--- NOTE | 2019-08-08 15:32 | NUR ---
Patient son Nirali called to say he wanted to establish a password for only his family to find out about patient. Members are paulino Cagle stephanie and nirali. Password is [employer]. patient incont of stool x3. . Seen by Dr Burns, stool for cdiff and occult blood ordered, and obtained.
[2019-08-08 16:28] LABS: OCCULT BLOOD STOOL POSITIVE (Neg)
[2019-08-08 18:00] VITALS: BP 158/78
--- NOTE | 2019-08-08 18:35 | NUR ---
patient hypertensive this am 187/96 dr Saleh aware. retook 147/[address] Saleh aware of med rec. Please read note about meds and encephalopathy. patient up ambulating with PT, appeared clearer in thought and able to answer more specific questions in afternoon. stool positive for occult blood. DR Burns paged. report given to Gilmar FREIRE
--- NOTE | 2019-08-08 18:37 | NUR ---
Problems reprioritized. Patient report given, questions answered & plan of care reviewed with Gilmar FREIRE.
[2019-08-08] MEDS ORDERED: nitroGLYCERIN 0.4mg SUBLingual tab SL PRN (19:25)
[2019-08-08] MEDS ORDERED: pantoprazole 40 MG vial IV ONE (19:30)
[2019-08-08] MEDS: lactobacillus rhamnosus 10,000 MMU CELLS/CAPSULE PO SCH (19:51)
[2019-08-08] MEDS: pantoprazole 40MG/NS 100ML BAG 100 ML IV SCH (20:23)
[2019-08-08] MEDS ORDERED: ACET-2119 PO (23:04)
[2019-08-08] MEDS ORDERED: PROM25TA14 PO (23:20)
[2019-08-08] MEDS ORDERED: ATRIN IH (23:20)
[2019-08-08] MEDS ORDERED: PER10325T PO (23:20)
[2019-08-08] MEDS ORDERED: FOLI0.4T2 PO (23:20)
[2019-08-08] MEDS ORDERED: ASPI-1264 PO (23:20)
[2019-08-08] MEDS ORDERED: FURO-150 PO (23:20)
[2019-08-08] MEDS ORDERED: GABA-532 PO (23:20)
[2019-08-08] MEDS ORDERED: OMEP40CA13 PO (23:20)
[2019-08-08] MEDS ORDERED: SENN-162 PO (23:20)
[2019-08-08] MEDS ORDERED: METH750T3 PO (23:20)
[2019-08-08] MEDS ORDERED: CLOP75TA35 PO (23:20)
[2019-08-08] MEDS ORDERED: NALO4SPR NAS (23:20)
[2019-08-08] MEDS ORDERED: ALBU8HFA PO (23:20)
[2019-08-08] MEDS ORDERED: MSC30T PO (23:20)
[2019-08-08] MEDS ORDERED: NALO25TA PO (23:20)
[2019-08-09] VITALS: BP 132/77
[2019-08-09] MEDS: pantoprazole 40MG/NS 100ML BAG 100 ML IV SCH ×5 (00:31→20:30)
[2019-08-09] MEDS: normal saline 1000ml 1,000 ML IV SCH ×2 (00:31→10:06)
--- NOTE | 2019-08-09 06:30 | NUR ---
Patient in room REMA 349. I have received report from Gilmar FREIRE and had the opportunity to ask questions and assume patient care. Patient resting in bed, denies needs at this time.
--- NOTE | 2019-08-09 06:32 | NUR ---
Problems reprioritized. Patient report given, questions answered & plan of care reviewed with Simona FREIRE.
--- NOTE | 2019-08-09 06:54 | NUR ---
Daughter, Ja, called and is stating concern over medications. Specifically, MS Contin, Percocet, Plavix. and states Welbutrin started and 4-6 weeks later and patient no longer new self, children and believing that his brother is alive. Also states that he has had 5 hospitalizations since. Will discuss with physician.
[2019-08-09 07:17] LABS: BASOPHILS % (AUTO) 0.4 % (0-1); EOSINOPHILS % (AUTO) 0.6 % (0-6); HEMATOCRIT 38.2 % (42.0-52.0); LYMPHOCYTES # (AUTO) 1.6 X10'3 (1.1-4.8); LYMPHOCYTES % (AUTO) 20.6 % (21-51); MEAN CORPUSCULAR HEMOGLOBIN 33.3 PG (27.0-31.0); MEAN CORPUSCULAR VOLUME 97.9 FL (78-98); MEAN PLATELET VOLUME 7.6 FL (7.4-10.4); MONOCYTES # (AUTO) 0.6 X10'3 (0-0.9); MONOCYTES % (AUTO) 7.9 % (2-12); NEUTROPHILS # (AUTO) 5.6 X10'3 (1.8-7.7); NEUTROPHILS % (AUTO) 70.5 % (42-75); PLATELET COUNT 277 X10'3 (140-440); RED CELL DISTRIBUTION WIDTH 14.4 % (11.5-14.5); WHITE BLOOD COUNT 7.9 X10'3 (4.5-11.0)
[2019-08-09 07:34] VITALS: BP_SYST 169; BP_SYST 8; BP_DIAS 89
[2019-08-09 07:40] LABS: ALANINE AMINOTRANSFERASE 28 U/L (12-78); ALBUMIN 2.9 G/DL (3.4-5.0); ALKALINE PHOSPHATASE 56 IU/L (46-116); ANION GAP 16 (8-16); ASPARTATE AMINO TRANSFERASE 21 U/L (10-37); BILIRUBIN,TOTAL 0.5 MG/DL (0.1-1.0); BLOOD UREA NITROGEN 24 MG/DL (7-18); CALCIUM 8.2 MG/DL (8.5-10.1); CHLORIDE 113 MMOL/L (99-107); CREATININE 1.09 MG/DL (0.60-1.10); GLUCOSE 75 MG/DL (70-104); MAGNESIUM 1.6 MG/DL (1.5-2.4); PHOSPHORUS 2.8 MG/DL (2.3-4.5); POTASSIUM 3.4 MMOL/L (3.5-5.1); SODIUM 146 MMOL/L (135-145); TOTAL CARBON DIOXIDE 17.5 MMOL/L (24-32); TOTAL PROTEIN 5.9 G/DL (6.4-8.2); eGFR 66 ML/MIN
[2019-08-09] MEDS: lactobacillus rhamnosus 10,000 MMU CELLS/CAPSULE PO SCH ×2 (08:00→19:55)
[2019-08-09] MEDS: K and/or MAG REPLACEMENT MC SCH (08:00)
[2019-08-09] MEDS ORDERED: lisinopril 10 MG tablet PO SCH (08:00)
[2019-08-09] MEDS ORDERED: buPROPion 100mg tablet PO SCH (08:00)
[2019-08-09] MEDS: CefTRIAXone/D5W-Rocephin 1gm 50 ML IV SCH (08:25)
[2019-08-09] MEDS: atenolol 25mg tablet PO SCH (08:35)
[2019-08-09] MEDS: ondansetron/PF 4mg/2ml inj IV PRN (09:38)
[2019-08-09] MEDS: potassium CL 10mEq/100ml bag 100 ML IV PRN ×4 (10:09→14:17)
[2019-08-09 11:00] VITALS: BP_SYST 173; BP_SYST 8; BP_DIAS 89
[2019-08-09] MEDS ORDERED: LORazepam 2 mg/ml vial IV PRN (11:35)
[2019-08-09] MEDS ORDERED: HYDROcodone/acetaminophen 5mg/325mg tablet PO PRN (11:35)
--- NOTE | 2019-08-09 11:55 | NUR ---
Daughter, Ja, called and states that she will be flying here from [place] so she will be here in about 5-6 hours. Discussed EGD and that the patient has refused it, Ja states that she will call her brother, Diego and have him discuss with patient the importance of having EGD. Will continue to monitor.
[2019-08-09 12:20] VITALS: BP 169/87
--- NOTE | 2019-08-09 13:30 | NUR ---
Dr. Arana aware of high BP, HR no new orders at this time. Pain medication given prior and waiting to see if takes effect. Will continue to monitor.
--- NOTE | 2019-08-09 16:09 | NUR ---
Daughter, Ja, called and states that if the patient refuses to get EGD then that's okay. States that the 4 children will be here around 2230. Will continue to monitor.
[2019-08-09] MEDS: dextrose 5%-1/4 normal saline 1,000 ML IV SCH (17:23)
[2019-08-09 18:00] VITALS: BP 193/97
--- NOTE | 2019-08-09 18:35 | NUR ---
Problems reprioritized. Patient report given, questions answered & plan of care reviewed with Rebecca FREIRE. Patient resting in bed.
--- NOTE | 2019-08-09 19:00 | NUR ---
Patient in room REMA 349. I have received report from Keyla FREIRE and had the opportunity to ask questions and assume patient care. Addendum: 08/10/19 at 0555 by Rebecca Oliveira RN Amended: Links added.
[2019-08-09] MEDS: HYDROcodone/acetaminophen 10/325mg tab PO PRN (19:54)
[2019-08-09] MEDS: pregabalin 75mg capsule PO SCH (19:55)
[2019-08-10] VITALS: BP 174/89
[2019-08-10] MEDS: pantoprazole 40MG/NS 100ML BAG 100 ML IV SCH ×5 (01:50→21:01)
[2019-08-10] MEDS: dextrose 5%-1/4 normal saline 1,000 ML IV SCH ×3 (04:00→18:31)
--- NOTE | 2019-08-10 05:00 | NUR ---
Pt's daughter Leticia into see patient at midnight.Daughter concerned about patient's medication and wanted the list of medication.Advised daughter to come in on Sunday to forms to release patients information to her. Pt's daughters verbilizes understand. Bp of 193/97 obtained by the nurse surgeon's assistant;followed up with manual bp which revealed 170/90. Notified with no new orders received. Addendum: 08/10/19 at 0748 by Rebecca Oliveira RN Amended: Links added.
--- NOTE | 2019-08-10 06:00 | NUR ---
Patient report given Stephany FREIRE, questions answered & plan of care reviewed Addendum: 08/10/19 at 6579 by Rebecca Oliveira RN Amended: Links added.
--- NOTE | 2019-08-10 06:51 | NUR ---
Patient in room REMA 349. I have received report from Reebcca FREIRE and had the opportunity to ask questions and assume patient care.
[2019-08-10 07:00] VITALS: BP 168/64
--- NOTE | 2019-08-10 07:29 | NUR ---
Patient in room REMA 349. I have received report from Rebecca FREIRE and had the opportunity to ask questions and assume patient care.
[2019-08-10 07:55] LABS: ALANINE AMINOTRANSFERASE 27 U/L (12-78); ALBUMIN 2.9 G/DL (3.4-5.0); ALBUMIN/GLOBULIN RATIO 0.9 (1.1-1.5); ALKALINE PHOSPHATASE 59 IU/L (46-116); ANION GAP 13 (8-16); ASPARTATE AMINO TRANSFERASE 19 U/L (10-37); BILIRUBIN,TOTAL 0.5 MG/DL (0.1-1.0); BLOOD UREA NITROGEN 16 MG/DL (7-18); BUN/CREATININE RATIO 16.8 (5.4-32.0); CALCIUM 8.2 MG/DL (8.5-10.1); CHLORIDE 108 MMOL/L (99-107); CREATININE 0.95 MG/DL (0.60-1.10); GLUCOSE 90 MG/DL (70-104); MAGNESIUM 1.6 MG/DL (1.5-2.4); PHOSPHORUS 2.4 MG/DL (2.3-4.5); POTASSIUM 3.7 MMOL/L (3.5-5.1); SODIUM 141 MMOL/L (135-145); eGFR 77 ML/MIN
[2019-08-10] MEDS: K and/or MAG REPLACEMENT MC SCH (08:00)
[2019-08-10] MEDS: atenolol 25mg tablet PO SCH (08:00)
[2019-08-10] MEDS: lactobacillus rhamnosus 10,000 MMU CELLS/CAPSULE PO SCH ×2 (08:12→19:42)
[2019-08-10] MEDS: pregabalin 75mg capsule PO SCH ×2 (08:12→19:42)
[2019-08-10] MEDS: lisinopril 20mg tablet PO SCH (08:19)
[2019-08-10] MEDS: CefTRIAXone/D5W-Rocephin 1gm 50 ML IV SCH (08:21)
[2019-08-10 11:00] VITALS: BP 180/87
[2019-08-10] MEDS ORDERED: amLODIPine 5mg tablet PO ONE (11:10)
[2019-08-10 11:52] LABS: BASOPHILS # (AUTO) 0.1 X10'3 (0-0.2); BASOPHILS % (AUTO) 1.2 % (0-1); EOSINOPHILS # (AUTO) 0.1 X10'3 (0-0.9); EOSINOPHILS % (AUTO) 1.2 % (0-6); LYMPHOCYTES # (AUTO) 1.7 X10'3 (1.1-4.8); LYMPHOCYTES % (AUTO) 18.3 % (21-51); MEAN CORPUSCULAR HEMOGLOBIN 33.2 PG (27.0-31.0); MEAN CORPUSCULAR HGB CONC 34.1 g/dL (33.0-36.5); MEAN CORPUSCULAR VOLUME 97.5 FL (78-98); MEAN PLATELET VOLUME 7.1 FL (7.4-10.4); MONOCYTES # (AUTO) 0.6 X10'3 (0-0.9); MONOCYTES % (AUTO) 6.6 % (2-12); NEUTROPHILS # (AUTO) 6.8 X10'3 (1.8-7.7); NEUTROPHILS % (AUTO) 72.7 % (42-75); PLATELET COUNT 288 X10'3 (140-440); RED BLOOD COUNT 4.81 X10'6 (4.70-6.10); RED CELL DISTRIBUTION WIDTH 14.2 % (11.5-14.5); WHITE BLOOD COUNT 9.4 X10'3 (4.5-11.0)
[2019-08-10] MEDS: HYDROcodone/acetaminophen 10/325mg tab PO PRN ×3 (16:16→23:37)
[2019-08-10 18:30] VITALS: BP 137/82
--- NOTE | 2019-08-10 18:43 | NUR ---
Problems reprioritized. Patient report given, questions answered & plan of care reviewed with Rolanda FREIRE.
--- NOTE | 2019-08-10 18:53 | NUR ---
Patient in room REMA 349. I have received report from Martine FREIRE and had the opportunity to ask questions and assume patient care.
--- NOTE | 2019-08-10 23:15 | NUR ---
Just informed MD of patients pulse now 120 and going in/out of a-fib. said to give 12.5mg atenolol now.
[2019-08-10] MEDS ORDERED: atenolol 25mg tablet PO ONE ×2 (23:20)
[2019-08-11] VITALS: BP 128/87
[2019-08-11] MEDS: pantoprazole 40MG/NS 100ML BAG 100 ML IV SCH ×2 (01:23→05:31)
[2019-08-11 01:40] VITALS: BP 114/70
--- NOTE | 2019-08-11 01:46 | NUR ---
Tele monitoring states patient is still in A-fib but pulse anywhere from mid ninties to 100. BP at this time via automatic = 114/70,95. Addendum: 08/11/19 at 0202 by Rolanda Varghese RN Informed MD as patient still in A-fib. No new orders given.
[2019-08-11] MEDS: dextrose 5%-1/4 normal saline 1,000 ML IV SCH ×2 (04:53→18:35)
[2019-08-11 05:57] LABS: ALANINE AMINOTRANSFERASE 23 U/L (12-78); ALBUMIN 2.4 G/DL (3.4-5.0); ALBUMIN/GLOBULIN RATIO 0.8 (1.1-1.5); ALKALINE PHOSPHATASE 51 IU/L (46-116); ANION GAP 8 (8-16); ASPARTATE AMINO TRANSFERASE 12 U/L (10-37); BILIRUBIN,TOTAL 0.4 MG/DL (0.1-1.0); BLOOD UREA NITROGEN 8 MG/DL (7-18); BUN/CREATININE RATIO 8.8 (5.4-32.0); CALCIUM 7.9 MG/DL (8.5-10.1); CHLORIDE 106 MMOL/L (99-107); CREATININE 0.91 MG/DL (0.60-1.10); GLUCOSE 113 MG/DL (70-104); MAGNESIUM 1.4 MG/DL (1.5-2.4); PHOSPHORUS 3.1 MG/DL (2.3-4.5); SODIUM 138 MMOL/L (135-145); TOTAL CARBON DIOXIDE 23.9 MMOL/L (24-32); TOTAL PROTEIN 5.3 G/DL (6.4-8.2); eGFR 81 ML/MIN
[2019-08-11 06:09] LABS: BASOPHILS # (AUTO) 0.1 X10'3 (0-0.2); BASOPHILS % (AUTO) 0.6 % (0-1); EOSINOPHILS # (AUTO) 0.2 X10'3 (0-0.9); EOSINOPHILS % (AUTO) 2.2 % (0-6); HEMATOCRIT 44.1 % (42.0-52.0); HEMOGLOBIN 14.9 g/dl (14.0-17.9); LYMPHOCYTES % (AUTO) 30.2 % (21-51); MEAN CORPUSCULAR HEMOGLOBIN 33.3 PG (27.0-31.0); MEAN CORPUSCULAR HGB CONC 33.8 g/dL (33.0-36.5); MEAN CORPUSCULAR VOLUME 98.7 FL (78-98); MEAN PLATELET VOLUME 7.7 FL (7.4-10.4); MONOCYTES # (AUTO) 0.7 X10'3 (0-0.9); PLATELET COUNT 282 X10'3 (140-440); RED BLOOD COUNT 4.47 X10'6 (4.70-6.10); RED CELL DISTRIBUTION WIDTH 14.3 % (11.5-14.5)
--- NOTE | 2019-08-11 06:52 | NUR ---
Patient has critical lab of 3.0. Called MD to add K and Mag protocol.
[2019-08-11] MEDS ORDERED: potassium Cl 20 mEq SR tablet PO PRN (06:55)
[2019-08-11] MEDS ORDERED: potassium CL 10mEq/100ml bag 100 ML IV PRN (06:55)
[2019-08-11] MEDS ORDERED: magnesium 4gm in 100ml NS 100 ML IV PRN (06:55)
[2019-08-11] MEDS ORDERED: magnesium 2GM in 50ml NS 50 ML IV PRN (06:55)
[2019-08-11 07:05] VITALS: BP 102/72
[2019-08-11] MEDS ORDERED: magnesium Cl slow-release 64mg tablet PO PRN (07:40)
[2019-08-11] MEDS: CefTRIAXone/D5W-Rocephin 1gm 50 ML IV SCH (07:42)
[2019-08-11] MEDS: lisinopril 20mg tablet PO SCH (07:45)
[2019-08-11] MEDS: pregabalin 75mg capsule PO SCH ×2 (07:46→20:10)
[2019-08-11] MEDS: potassium Cl 20 mEq SR tablet PO PRN ×3 (07:47→16:28)
[2019-08-11] MEDS: atenolol 25mg tablet PO SCH (07:47)
[2019-08-11] MEDS: lactobacillus rhamnosus 10,000 MMU CELLS/CAPSULE PO SCH ×2 (07:48→20:10)
[2019-08-11] MEDS: K and/or MAG REPLACEMENT MC SCH (08:00)
[2019-08-11] MEDS: HYDROcodone/acetaminophen 10/325mg tab PO PRN ×3 (09:58→21:06)
[2019-08-11 11:00] VITALS: BP 134/77
--- NOTE | 2019-08-11 16:36 | NUR ---
much conversation with family regarding patient. talked with taylor daughter, who stated that her siblings are all flying into discuss care of patient for DC. See manager nc notes. Daughter taylor stated she is going to come and tow picker patient between 7-9pm. Dr Mahmood aware, is to be DC home.Diet increased tolerating reg diet, but does not have lower dentures so diccicult to chew. diet changed to mechanical soft with ground meat. patient appears stable.
--- NOTE | 2019-08-11 17:54 | NUR ---
D/C package printed out case therapist Fanta who talked with daughter. Daughter Zakia stated she will come and pickup patient between 7 to 9 pm
--- NOTE | 2019-08-11 18:04 | NUR ---
Problems reprioritized. Patient report given, questions answered & plan of care reviewed with Duy FREIRE.
--- NOTE | 2019-08-11 18:30 | NUR ---
Patient in room REMA 349. I have received report from OZ FREIRE AND TEJ RN and had the opportunity to ask questions and assume patient care. PATIENT READY FOR DISCHARGE WAITING FOR DAUGHTER FOR PLASTICS WORKER.
[2019-08-11 20:00] VITALS: BP 108/67
[2019-08-11] MEDS ORDERED: pantoprazole 40mg Tablet.DR PO SCH (20:00)
--- NOTE | 2019-08-11 21:30 | NUR ---
PATIENT'S DAUGHTER COLLIN NOT HERE YET, CALLED HER AND SAID SHE IS ON HER WAY TO THE HOSPITAL.
[2019-08-11 23:00] VITALS: BP 136/68
--- NOTE | 2019-08-11 23:00 | NUR ---
PATIENT'S DAUGHTER COLLIN HERE TO ORTHOPEDIC TECHNICIAN PATIENT. DISCHARGE INSTRUCTIONS REVIEWED WITH HER AND THE PATIENT AND SIGNED BY THEM BOTH.
--- NOTE | 2019-08-11 23:20 | NUR ---
PATIENT LEFT FOR DISCHARGE HOME WITH DAUGHTER COLLIN IN A WHEELCHAIR WITH STAFF TO THE FRONT DOOR.
== END 2019-08-11 23:43 | disposition home health service (06) | DRG 91 ==
LOC: ER 15:12 → SUR 3N 19:40 → CMPBEDREQ 08-11 18:05
PROVIDERS: ADMIT Family Medicine; ATTEND Family Medicine
DX: G92 Toxic encephalopathy (principal); N17.0 Acute kidney failure with tubular necrosis; K92.2 Gastrointestinal hemorrhage, unspecified; N17.9 Acute kidney failure, unspecified; E87.0 Hyperosmolality and hypernatremia; J43.9 Emphysema, unspecified; I73.9 Peripheral vascular disease, unspecified; I25.10 Atherosclerotic heart disease of native coronary artery without angina pectoris; N18.9 Chronic kidney disease, unspecified; I12.9 Hypertensive chronic kidney disease with stage 1 through stage 4 chronic kidney disease, or unspecified chronic kidney disease; E78.5 Hyperlipidemia, unspecified; G62.9 Polyneuropathy, unspecified; E86.0 Dehydration; E78.00 Pure hypercholesterolemia, unspecified; N40.0 Benign prostatic hyperplasia without lower urinary tract symptoms; E87.6 Hypokalemia; Z80.1 Family history of malignant neoplasm of trachea, bronchus and lung; Z87.891 Personal history of nicotine dependence; Z79.899 Other long term (current) drug therapy; T50.905A Adverse effect of unspecified drugs, medicaments and biological substances, initial encounter
CPT/HCPCS: 36415; 70450; 71045; 74176; 80053; 80305; 80320; 81001; 82140; 82272; 82948; 83605; 83690; 83735; 83880; 84100; 84443; 84484; 85025; 85610; 85730; 87040; 87081; 87088; 93005; 96361; 96374; 97110; 97116; 97161; 97530; 99285; C9113; G0378; J0696; J1650; J2405; J3480; J7030